=== PATIENT | female | born 1955 | race Caucasian/White ===

== ENCOUNTER → 2017-03-09 | Outpatient (CLI) | payer OTHER ==
[~2017-03-09] MED LIST: ACCUNEB SO1.25 MG/1 INH; ASPIR 8181 M1 PO; ATIVAN0.5 M1 PO; IBUPROFEN 800800 MG PO; LEVOTHYROXINE 0.1 MG PO; MEDROL DOSPAK21 TA1 PO; MOBIC15 MG PO; OMEPRAZOLE20 M2 PO; PREDNISONE 5 MG5 M1 PO; PROAIR RESPICL90 MCG IH; SIMVASTATIN40 MG PO; SOOTHE LUBRICA1 EACH OP; ULTRAM 50MG TAB50 MG PO; ZOLOFT100 MG PO; ZPAK PO
== END ==
LOC: M.LAB 09:10
DX: Z01.812 Encounter for preprocedural laboratory examination (principal)

== ENCOUNTER → 2018-01-22 | Day surgery (SDC) | payer OTHER ==
[~2018-01-22] MED LIST changes: +ALEVE220 MG PO; +BENADRYL25 MG PO; +FISH OIL 1,001000 M2 PO; +IRON325 PO; +MAXZIDE-25 MG1 EACH PO; +NORVASC5 MG PO; +PROBIOTIC1 EAC1 PO; +SUPER B-50 COM1 EACH PO; +TOPAMAX100 MG PO; +VITAMIN D3400 UNIT PO; +WELLBUTRIN SR100 MG PO
[2018-01-22 08:52] LABS: HEMOGLOBIN 14.2 gm/dL (12.0-15.0); MCH 30.7 pg (26.0-34.0); MCHC 33.7 g/dL (28.0-37.0); MCV 91.1 fL (80.0-100.0); MPV 8.2 fl. (7.2-11.1); RBC 4.61 mil/uL (4.20-5.00); RDW-CV 14.5 % (10.5-14.5); WBC 10.8 thou/uL (4.0-11.0)
[2018-01-22 09:03] LABS: POTASSIUM 3.2 mmol/L (3.5-5.1)
--- NOTE | 2018-01-22 11:33 | EKG ---
[place] [address] ELECTROCARDIOGRAM REPORT Name: BASSAM ADEN Room: [facility]#: [id number] Admission: 01/22/18 Attend Phys: Kellen Rogers MD Discharge: Date of : 53 Report #: [id number] THIS REPORT FOR: //name// [facility] Test Date: 2018-01-22 Test Time: 08:48:26 Pat Name: BASSAM MARKIE Department: Room: Gender: F [employer] Nutritionist: : 1955 Requested By: Kellen Rogers Order Number: [id number] Reading MD: Dewey Lopez Measurements Intervals Jordan Rate: 57 P: 25 NH: 169 QRS: -15 QRSD: 101 T: 18 QT: 437 QTc: 426 Interpretive Statements Sinus bradycardia Borderline left axis deviation Low voltage, precordial leads Baseline wander in lead(s) II,III,aVR,aVL,aVF,V4 Compared to ECG 12/25/2015 13:24:03 no change Electronically Signed On 01-22-2018 11:33:17 [employer]RIGATION EQUIPMENT REMOVER by Dewey Lopez [email or web address] <ELECTRONICALLY SIGNED> By: Dewey Lopez MD, [facility] 01/22/18 1133 [id number] Dewey Lopez MD, [facility] /EPI
== END | disposition home or self-care (01) ==
LOC: M.SUR 07:08
PROVIDERS: Internal Medicine Gastroenterology
DX: K21.9 Gastro-esophageal reflux disease without esophagitis (principal); Z98.0 Intestinal bypass and anastomosis status; I10 Essential (primary) hypertension; E78.5 Hyperlipidemia, unspecified; G47.33 Obstructive sleep apnea (adult) (pediatric); G43.909 Migraine, unspecified, not intractable, without status migrainosus; E03.9 Hypothyroidism, unspecified; E66.01 Morbid (severe) obesity due to excess calories; F32.9 Major depressive disorder, single episode, unspecified; F41.9 Anxiety disorder, unspecified; Z88.8 Allergy status to other drugs, medicaments and biological substances; Z98.890 Other specified postprocedural states; Z90.49 Acquired absence of other specified parts of digestive tract; Z79.899 Other long term (current) drug therapy; Z86.2 Personal history of diseases of the blood and blood-forming organs and certain disorders involving the immune mechanism; Z79.82 Long term (current) use of aspirin; Z68.44 Body mass index [BMI] 60.0-69.9, adult